=== PATIENT | male | born 1965 | race Caucasian/White ===

== ENCOUNTER 2024-03-28 09:42 | Emergency (ER) | payer BC ==
[~2024-03-28] VITALS: Ht 185.4 cm; Wt 104.5 kg
[2024-03-28 10:54] VITALS: BP 127/60; TEMP 96.6; O2SAT 100
== END 2024-03-28 11:01 | disposition home or self-care (01) ==
LOC: M ED 09:42 → EDBD 09:42 → M ED 11:01
DX: S70.02XA Contusion of left hip, initial encounter (principal); Y92.410 Unspecified street and highway as the place of occurrence of the external cause; Y93.9 Activity, unspecified; Y99.9 Unspecified external cause status; V49.40XA Driver injured in collision with unspecified motor vehicles in traffic accident, initial encounter; Z88.0 Allergy status to penicillin

== ENCOUNTER 2024-05-12 19:44 | Emergency (ER) | payer OTHER, BC ==
[~2024-05-12] VITALS: Ht 188 cm; Wt 104.3 kg
[2024-05-12] MEDS ORDERED: GABA-284 PO (23:10)
[2024-05-12 23:21] VITALS: BP 135/71; TEMP 96.9; O2SAT 100
== END 2024-05-12 23:23 | disposition home or self-care (01) ==
LOC: M ED 19:44
DX: M54.42 Lumbago with sciatica, left side (principal); Z88.0 Allergy status to penicillin; Z79.899 Other long term (current) drug therapy

== ENCOUNTER 2024-05-17 12:13 | Emergency (ER) | payer OTHER, BC ==
[~2024-05-17] VITALS: Ht 188 cm; Wt 104.4 kg
[~2024-05-17 12:13] MED LIST: GABA-284 PO
[2024-05-17 14:29] VITALS: BP 117/62; TEMP 97.4; O2SAT 100
[2024-05-17] MEDS ORDERED: IBUP-1022 PO (14:37)
[2024-05-17] MEDS ORDERED: CYCL-707 PO (14:37)
== END 2024-05-17 14:48 | disposition home or self-care (01) ==
LOC: M ED 12:13
DX: M54.16 Radiculopathy, lumbar region (principal); S70.02XA Contusion of left hip, initial encounter; V89.2XXA Person injured in unspecified motor-vehicle accident, traffic, initial encounter; Y92.410 Unspecified street and highway as the place of occurrence of the external cause; Y93.89 Activity, other specified; Y99.9 Unspecified external cause status; Z87.891 Personal history of nicotine dependence; Z88.0 Allergy status to penicillin; M17.12 Unilateral primary osteoarthritis, left knee; M43.06 Spondylolysis, lumbar region; M46.96 Unspecified inflammatory spondylopathy, lumbar region